=== PATIENT | female | born 1955 | race Caucasian/White ===

== ENCOUNTER 2018-11-10 19:35 | Emergency (ER) | payer MEDICARE, OTHER ==
[~2018-11-10] VITALS: Ht 152.4 cm; Wt 63.0 kg
[2018-11-10] MEDS ORDERED: XANAX0.5 MG PO (19:50)
[2018-11-10] MEDS ORDERED: LASIX 40 MG40 MG/TAB PO (19:50)
[2018-11-10] MEDS ORDERED: TRAZODONE50 MG PO (19:51)
[2018-11-10] MEDS ORDERED: PHENTERMINE H37.5 M1 PO (20:15)
[2018-11-10 20:16] LABS: URINE BILIRUBIN - DIPSTICK NEGATIVE (NEGATIVE); URINE BLOOD DIPSTICK TRACE-LYSED (NEGATIVE); URINE GLUCOSE - DIPSTICK NEGATIVE (NEGATIVE); URINE KETONE TRACE mg/dL (NEGATIVE); URINE LEUK ESTERASE NEGATIVE (NEGATIVE); URINE PROTEIN - DIPSTICK TRACE mg/dL (NEG-TRACE); URINE SPECIFIC GRAVITY 1.015
[2018-11-10 20:17] LABS: URINE COLOR ORANGE; URINE NITRITE - DIPSTICK POSITIVE (Negative)
[2018-11-10 20:30] LABS: URINE BACTERIA MANY hpf; URINE SQUAMOUS EPITHELIAL CELL FEW EPI/hpf (0-FEW)
[2018-11-10] MEDS ORDERED: KEFLEX500 MG PO (21:04)
[2018-11-10] MEDS ORDERED: PYRIDIUM200 MG PO (21:04)
[2018-11-10 21:08] VITALS: BP 155/74
== END 2018-11-10 21:08 | disposition home or self-care (01) ==
LOC: ED 19:35
DX: N39.0 Urinary tract infection, site not specified (principal); N31.8 Other neuromuscular dysfunction of bladder; B94.8 Sequelae of other specified infectious and parasitic diseases; Z87.440 Personal history of urinary (tract) infections

== ENCOUNTER 2019-07-20 10:43 | Emergency (ER) | payer MEDICARE, OTHER ==
[~2019-07-20] VITALS: Ht 152.4 cm; Wt 64.0 kg
[~2019-07-20 10:43] MED LIST: KEFLEX500 MG PO; LASIX20 MG PO; PHENTERMINE H37.5 M1 PO; PYRIDIUM200 MG PO; TRAZODONE50 MG PO; XANAX0.5 MG PO
[2019-07-20 11:15] LABS: URINE BILIRUBIN - DIPSTICK NEGATIVE (NEGATIVE); URINE BLOOD DIPSTICK TRACE-INTACT (NEGATIVE); URINE COLOR YELLOW; URINE GLUCOSE - DIPSTICK NEGATIVE (NEGATIVE); URINE KETONE NEGATIVE (NEGATIVE); URINE PROTEIN - DIPSTICK NEGATIVE (NEG-TRACE); URINE UROBILINOGEN - DIPSTICK 0.2 E.U./dL (0.2)
[2019-07-20 11:18] LABS: URINE LEUK ESTERASE SMALL (NEGATIVE); URINE NITRITE - DIPSTICK POSITIVE (Negative)
[2019-07-20 11:29] LABS: URINE BACTERIA MANY hpf; URINE SQUAMOUS EPITHELIAL CELL FEW EPI/hpf (0-FEW); URINE WBC 20-50 WBC/hpf (0-5)
[2019-07-20] MEDS ORDERED: LORTAB 5/3255 MG PO (11:49)
[2019-07-20] MEDS ORDERED: PYRIDIUM200 MG PO (11:49)
[2019-07-20] MEDS ORDERED: KEFLEX500 M1 PO (11:49)
[2019-07-20] MEDS ORDERED: PHENTERMINE H37.5 M3 PO (11:50)
[2019-07-20 11:55] VITALS: BP 166/79
== END 2019-07-20 11:55 | disposition home or self-care (01) ==
LOC: ED 10:43
DX: N39.0 Urinary tract infection, site not specified (principal); B96.20 Unspecified Escherichia coli [E. coli] as the cause of diseases classified elsewhere; M54.9 Dorsalgia, unspecified; G89.29 Other chronic pain

== ENCOUNTER 2019-08-09 10:11 | Emergency (ER) | payer MEDICARE, OTHER ==
[~2019-08-09] VITALS: Ht 152.4 cm; Wt 63.0 kg
[~2019-08-09 10:11] MED LIST changes: +KEFLEX500 M1 PO; +LORTAB 5/3255 MG PO; +PHENTERMINE H37.5 M3 PO
[2019-08-09 11:02] LABS: URINE BILIRUBIN - DIPSTICK NEGATIVE (NEGATIVE); URINE BLOOD DIPSTICK SMALL (NEGATIVE); URINE COLOR YELLOW; URINE GLUCOSE - DIPSTICK NEGATIVE (NEGATIVE); URINE KETONE NEGATIVE (NEGATIVE); URINE NITRITE - DIPSTICK NEGATIVE (Negative); URINE PROTEIN - DIPSTICK NEGATIVE (NEG-TRACE); URINE SPECIFIC GRAVITY <=1.005; URINE UROBILINOGEN - DIPSTICK 0.2 E.U./dL (0.2)
[2019-08-09 11:04] LABS: HEMATOCRIT 40.5 % (37.0-47.0); HEMOGLOBIN 12.9 g/dl (12.0-16.0); IMMATURE GRANULOCYTES 0.4 % (0.0-5.0); MEAN CELL VOLUME 88.4 fL CALC (80.0-100.0); MEAN CORPUSCULAR HGB 28.2 pG CALC (26.0-32.0); MEAN CORPUSCULAR HGB CONC 31.9 g/L CALC (32.0-36.0); NEUT# 4.77 thou/uL (2.00-7.15); RED BLOOD COUNT 4.58 mill/uL (4.20-5.60); RED CELL DISTRI WIDTH 14.3 % (11.5-15.5)
[2019-08-09 11:13] LABS: URINE BACTERIA RARE hpf; URINE LEUK ESTERASE SMALL (NEGATIVE); URINE SQUAMOUS EPITHELIAL CELL FEW EPI/hpf (0-FEW)
[2019-08-09 11:18] LABS: ALBUMIN 4.7 g/dL (3.2-5.0); ALKALINE PHOSPHATASE 72 u/l (38-126); ANION GAP 15 (6-22 (CALC)); BILIRUBIN, TOTAL 0.6 mg/dL (0.0-1.4); BUN 19 mg/dL (8-23); BUN/CREATININE RATIO 21 (12-20 (CALC)); CARBON DIOXIDE 24 mmol/l (22-30); CHLORIDE 102 mmol/l (95-108); CREATININE 0.9 mg/dL (0.5-1.0); GFR > 60 ML/MIN (>=60 (CALC)); GFR FOR AFR.AMER. > 60 ML/MIN (>=60 (CALC)); SGOT/AST 23 u/l (9-36); SODIUM 137 mmol/l (137-146); TOTAL PROTEIN 8.7 g/dL (6.3-8.2)
[2019-08-09 11:30] LABS: MYOGLOBIN 25 ng/mL (0 - 62)
[2019-08-09] MEDS ORDERED: ULTRAM50 M1 PO (11:57)
[2019-08-09] MEDS ORDERED: PYRIDIUM200 MG PO (11:57)
[2019-08-09] MEDS ORDERED: CIPROFLOXACN500 MG PO (11:57)
[2019-08-09 13:10] VITALS: BP 113/58
== END 2019-08-09 13:10 | disposition home or self-care (01) ==
LOC: ED 10:11
PROVIDERS: Emergency Medicine
DX: N39.0 Urinary tract infection, site not specified (principal); B96.20 Unspecified Escherichia coli [E. coli] as the cause of diseases classified elsewhere

== ENCOUNTER 2020-11-05 08:40 | Emergency (ER) | payer MEDICARE, OTHER ==
[~2020-11-05] VITALS: Ht 152.4 cm; Wt 65.5 kg
[~2020-11-05 08:40] MED LIST changes: +CIPROFLOXACN500 MG PO; +ULTRAM50 M1 PO
[2020-11-05 09:13] VITALS: BP 145/92
[2020-11-05 09:26] LABS: URINE BILIRUBIN - DIPSTICK NEGATIVE (NEGATIVE); URINE BLOOD DIPSTICK MODERATE (NEGATIVE); URINE COLOR YELLOW; URINE GLUCOSE - DIPSTICK NEGATIVE (NEGATIVE); URINE KETONE NEGATIVE (NEGATIVE); URINE LEUK ESTERASE MODERATE (NEGATIVE); URINE NITRITE - DIPSTICK POSITIVE (Negative); URINE PROTEIN - DIPSTICK NEGATIVE (NEG-TRACE); URINE SPECIFIC GRAVITY 1.015; URINE UROBILINOGEN - DIPSTICK 0.2 E.U./dL (0.2)
[2020-11-05 09:27] LABS: URINE BACTERIA MANY hpf; URINE EPITHELIAL CELLS MODERATE EPI/hpf (0-FEW)
[2020-11-05 09:28] LABS: HEMATOCRIT 37.4 % (37.0-47.0); IMMATURE GRANULOCYTES 0.3 % (0.0-5.0); MEAN CELL VOLUME 90.6 fL CALC (80.0-100.0); MEAN CORPUSCULAR HGB 29.1 pG CALC (26.0-32.0); MEAN CORPUSCULAR HGB CONC 32.1 g/dL CAL (32.0-36.0); NEUT# 6.55 thou/uL (2.00-7.15); RED BLOOD COUNT 4.13 mill/uL (4.20-5.60); RED CELL DISTRI WIDTH 14.6 % (11.5-15.5)
[2020-11-05 09:38] LABS: ALBUMIN 4.1 g/dL (3.2-5.0); ALKALINE PHOSPHATASE 58 u/l (38-126); BILIRUBIN, TOTAL 0.5 mg/dL (0.0-1.4); BUN 14 mg/dL (8-23); BUN/CREATININE RATIO 15 (12-20 (CALC)); CARBON DIOXIDE 28 mmol/l (22-30); CHLORIDE 103 mmol/l (95-108); GFR 56 ML/MIN (>=60 (CALC)); GFR FOR AFR.AMER. > 60 ML/MIN (>=60 (CALC)); SGOT/AST 20 u/l (9-36); SODIUM 138 mmol/l (137-146); TOTAL PROTEIN 7.3 g/dL (6.3-8.2)
[2020-11-05 09:46] LABS: ANION GAP 12 (6-22 (CALC)); POTASSIUM 4.9 mmol/l (3.5-5.1)
[2020-11-05 09:51] LABS: MYOGLOBIN 28 ng/mL (0 - 62)
--- NOTE | 2020-11-05 10:07 | NUR ---
PT STATES SHE FEELS BETTER WITH AEROSOLIZED BRONCHODILATOR THERAPY. NAD. VSS. SPO2 ON RA 95.
[2020-11-05] MEDS ORDERED: VENTOLIN HFA IN (11:24)
[2020-11-05] MEDS ORDERED: GUAIFENESIN AC PO (11:24)
[2020-11-05] MEDS ORDERED: Levaquin PO (11:24)
[2020-11-05] MEDS ORDERED: MEDDOSEPAK PO (11:24)
== END 2020-11-05 11:36 | disposition home or self-care (01) ==
LOC: ED 08:40
DX: J40 Bronchitis, not specified as acute or chronic (principal); N39.0 Urinary tract infection, site not specified; F41.0 Panic disorder [episodic paroxysmal anxiety]; B96.20 Unspecified Escherichia coli [E. coli] as the cause of diseases classified elsewhere; Z20.822 Contact with and (suspected) exposure to COVID-19

== ENCOUNTER 2021-07-08 12:39 | Emergency (ER) | payer MEDICARE, OTHER ==
[~2021-07-08] VITALS: Ht 152.4 cm; Wt 75.0 kg
[~2021-07-08 12:39] MED LIST changes: +GUAIFENESIN AC PO; +Levaquin PO; +MEDDOSEPAK PO; +VENTOLIN HFA IN
[2021-07-08 13:44] LABS: URINE BILIRUBIN - DIPSTICK NEGATIVE (NEGATIVE); URINE BLOOD DIPSTICK MODERATE (NEGATIVE); URINE COLOR YELLOW; URINE GLUCOSE - DIPSTICK NEGATIVE (NEGATIVE); URINE KETONE NEGATIVE (NEGATIVE); URINE LEUK ESTERASE TRACE (NEGATIVE); URINE PROTEIN - DIPSTICK NEGATIVE (NEG-TRACE); URINE SPECIFIC GRAVITY 1.015; URINE UROBILINOGEN - DIPSTICK 0.2 E.U./dL (0.2)
[2021-07-08 13:47] LABS: URINE NITRITE - DIPSTICK POSITIVE (Negative)
[2021-07-08 13:48] LABS: URINE BACTERIA MANY hpf
[2021-07-08 15:32] LABS: HEMATOCRIT 38.6 % (37.0-47.0); HEMOGLOBIN 12.7 g/dl (12.0-16.0); IMMATURE GRANULOCYTES 0.3 % (0.0-5.0); MEAN CELL VOLUME 90.4 fL CALC (80.0-100.0); MEAN CORPUSCULAR HGB 29.7 pG CALC (26.0-32.0); MEAN CORPUSCULAR HGB CONC 32.9 g/dL CAL (32.0-36.0); NEUT# 5.75 thou/uL (2.00-7.15); RED BLOOD COUNT 4.27 mill/uL (4.20-5.60); RED CELL DISTRI WIDTH 13.2 % (11.5-15.5)
[2021-07-08 15:53] LABS: ALBUMIN 4.1 g/dL (3.2-5.0); ALKALINE PHOSPHATASE 74 u/l (38-126); ANION GAP 9 (6-22 (CALC)); BILIRUBIN, TOTAL 0.4 mg/dL (0.0-1.4); BUN 16 mg/dL (8-23); BUN/CREATININE RATIO 16 (12-20 (CALC)); CARBON DIOXIDE 30 mmol/l (22-30); CHLORIDE 103 mmol/l (95-108); GFR 56 ML/MIN (>=60 (CALC)); GFR FOR AFR.AMER. > 60 ML/MIN (>=60 (CALC)); POTASSIUM 4.1 mmol/l (3.5-5.1); SGOT/AST 19 u/l (9-36); SODIUM 138 mmol/l (137-146); TOTAL PROTEIN 7.3 g/dL (6.3-8.2)
[2021-07-08] MEDS ORDERED: AMOX/K CLAV875 M1 PO (17:52)
[2021-07-08] MEDS ORDERED: TESSALON PERLE100 MG PO (17:52)
[2021-07-08 18:28] VITALS: BP 113/85
== END 2021-07-08 18:35 | disposition home or self-care (01) ==
LOC: ED 12:39
PROVIDERS: Emergency Medicine
DX: J40 Bronchitis, not specified as acute or chronic (principal); J32.9 Chronic sinusitis, unspecified; N39.0 Urinary tract infection, site not specified; F41.9 Anxiety disorder, unspecified; F17.200 Nicotine dependence, unspecified, uncomplicated; Z87.01 Personal history of pneumonia (recurrent); Z20.822 Contact with and (suspected) exposure to COVID-19; R06.02 Shortness of breath
CPT/HCPCS: Q9967

== ENCOUNTER 2023-03-06 08:49 | Emergency (ER) | payer OTHER, MEDICARE ==
[~2023-03-06] VITALS: Ht 152.4 cm; Wt 66.4 kg
[2023-03-06] VITALS (8 sets, daily range): BP systolic 134–156; BP diastolic 78–95
[~2023-03-06 08:49] MED LIST changes: +AMOX/K CLAV875 M1 PO; +TESSALON PERLE100 MG PO
[2023-03-06] MEDS ORDERED: ALL DAY10 MG PO (09:14)
[2023-03-06] MEDS ORDERED: PREDNISONE50 MG PO (09:14)
[2023-03-06] MEDS ORDERED: EPIPEN 2-P0.3 MG/0.3 IM (09:14)
== END 2023-03-06 10:31 | disposition home or self-care (01) | DRG 607 ==
LOC: ED 08:49
DX: L50.0 Allergic urticaria (principal)